=== PATIENT | female | born 1985 ===

== ENCOUNTER 2016-10-04 22:09 | Emergency (ER) | payer OTHER ==
--- NOTE | 2016-10-05 00:32 | ED ORDER SUMMARY ---
..... Patient: JEREMY YOO OrderSheet [facility] VisitID: [id number] [address] [place] [address] 31y, F Registration Date/Time: 10/04/2016 ORDER SHEET Weight: 90.7 kg (stated) Allergies: No Known Drug Allergy GENERAL ORDERS: Cervical Spine 2 or 3V Urgent (23:57 10/04/2016 MARYANNnhzoila MCGREGOR) ([facility] 23:58 Tanesha) (0:07 SBalde R.N.) MEDICATION ORDERS: Dilaudid IM 2 mg (HIGH ALERT MEDICATION, NOW) (23:56 [facility]2016 [facility] (0:18 SBalde R.N.) Phenergan IM 25 mg (HIGH ALERT MEDICATION, NOW) (23:57 10/04/2016 [facility] (0:18 SBalde R.N.) IV FLUIDS: ORDER SHEET NOTES: [Electronically signed by Fiona Toure R.N. (00:43 10/05/2016)] [Electronically signed by Philipp Goodwin DO (03:33 10/05/2016)] [Electronically locked/signed by Fiona Toure R.N. (00:43 10/05/2016)]
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
--- NOTE | 2016-10-05 00:32 | ED ORDER SUMMARY ---
..... Patient: JEREMY YOO OrderSheet [facility] VisitID: [id number] [address] [place] [address] 31y, F Registration Date/Time: 10/04/2016 ORDER SHEET Weight: 90.7 kg (stated) Allergies: No Known Drug Allergy GENERAL ORDERS: Cervical Spine 2 or 3V Urgent (23:57 10/04/2016 MARYANNmszoila MCGREGOR) ([facility] 23:58 Tanesha) (0:07 SBalde R.N.) MEDICATION ORDERS: Dilaudid IM 2 mg (HIGH ALERT MEDICATION, NOW) (23:56 10/04/2016 [facility] (0:18 SBalde R.N.) Phenergan IM 25 mg (HIGH ALERT MEDICATION, NOW) (23:57 10/04/2016 [facility] (0:18 SBalde R.N.) IV FLUIDS: ORDER SHEET NOTES: [Electronically signed by Fiona Toure R.N. (00:43 10/05/2016)] [Electronically signed by Philipp Goodwin DO (03:33 10/05/2016)] [Electronically locked/signed by Fiona Toure R.N. (00:43 10/05/2016)]
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
--- NOTE | 2016-10-05 03:33 | ED MED RECONCILIATION SUMMARY ---
Patient: JEREMY YOO Medication Reconciliation Report [facility] VisitID: [id number] [address] [place] [address] 31y, F Registration Date/Time: 10/04/2016 Weight: 90.7 kg Height/Length: 66 in. BMI: 32.3 ALLERGIES: No Known Drug Allergy The patient's Home Medications are listed below: THE FOLLOWING MEDICATIONS NEED TO BE RECONCILED: Sertraline HCl Oral 100 mg, daily Suboxone Sublingual The source(s) of the original Home Medication information: patient The following Medications were given to the patient in the Emergency Department: Dilaudid [IM] IM 2 mg, administered: 10/05/2016 12:18:00 AM Phenergan [IM] IM 25 mg, administered: 10/05/2016 12:18:00 AM The following Medications were prescribed to the patient: Hydrocodone/APAP 5mg/325mg: take 1 to 2 orally every 6 hours as needed for pain. Dispense fifteen (15). No refills. -- Philipp Goodwin DO Flexeril 10 mg: Take 1 orally every 8 hours as needed for muscle spasm. Dispense twenty (20). No refills. Substitution is permissible. -- Philipp Goodwin DO
--- NOTE | 2016-10-05 03:33 | ED MAR SUMMARY ---
..... Medication Administration Record [facility] [address] [place] [address] Patient: JEREMY YOO Visit ID: [id number] 31y, F Weight: 90.7 kg Height/Length: 66 in BMI: 32.3 ALLERGIES: No Known Drug Allergy Given 00:18 10/05/2016 Kae Rogers REmaniNEmani Medication Administered: DILAUDID [IM] (HYDROMORPHONE HCL PF), Dose: 2 mg IM. Medication Ordered: Dilaudid IM 2 mg (HIGH ALERT MEDICATION, NOW). Given 00:18 10/05/2016 Kae Rogers, REmaniNEmani Medication Administered: PHENERGAN [IM] (PROMETHAZINE HCL), Dose: 25 mg IM. Medication Ordered: Phenergan IM 25 mg (HIGH ALERT MEDICATION, NOW).
--- NOTE | 2016-10-05 03:33 | ED MED RECONCILIATION SUMMARY ---
Patient: JEREMY YOO Medication Reconciliation Report [facility] VisitID: [id number] [address] [place] [address] 31y, F Registration Date/Time: 10/04/2016 Weight: 90.7 kg Height/Length: 66 in. BMI: 32.3 ALLERGIES: No Known Drug Allergy The patient's Home Medications are listed below: THE FOLLOWING MEDICATIONS NEED TO BE RECONCILED: Sertraline HCl Oral 100 mg, daily Suboxone Sublingual The source(s) of the original Home Medication information: patient The following Medications were given to the patient in the Emergency Department: Dilaudid [IM] IM 2 mg, administered: 10/05/2016 12:18:00 AM Phenergan [IM] IM 25 mg, administered: 10/05/2016 12:18:00 AM The following Medications were prescribed to the patient: Hydrocodone/APAP 5mg/325mg: take 1 to 2 orally every 6 hours as needed for pain. Dispense fifteen (15). No refills. -- Philipp Goodwin DO Flexeril 10 mg: Take 1 orally every 8 hours as needed for muscle spasm. Dispense twenty (20). No refills. Substitution is permissible. -- Philipp Goodwin DO
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
--- NOTE | 2016-10-05 03:33 | ED MAR SUMMARY ---
..... Medication Administration Record [facility] [address] [place] [address] Patient: JEREMY YOO Visit ID: [id number] 31y, F Weight: 90.7 kg Height/Length: 66 in BMI: 32.3 ALLERGIES: No Known Drug Allergy Given 00:18 10/05/2016 Kae Rogers REmaniNEmani Medication Administered: DILAUDID [IM] (HYDROMORPHONE HCL PF), Dose: 2 mg IM. Medication Ordered: Dilaudid IM 2 mg (HIGH ALERT MEDICATION, NOW). Given 00:18 10/05/2016 Kae Rogers, REmaniNEmani Medication Administered: PHENERGAN [IM] (PROMETHAZINE HCL), Dose: 25 mg IM. Medication Ordered: Phenergan IM 25 mg (HIGH ALERT MEDICATION, NOW).
== END 2016-10-05 00:41 | disposition home or self-care (01) ==
LOC: ED SRH 22:09
DX: S16.1XXA Strain of muscle, fascia and tendon at neck level, initial encounter (principal); S29.012A Strain of muscle and tendon of back wall of thorax, initial encounter; V43.52XA Car driver injured in collision with other type car in traffic accident, initial encounter; Y93.89 Activity, other specified; Y92.410 Unspecified street and highway as the place of occurrence of the external cause; Y99.9 Unspecified external cause status; G43.009 Migraine without aura, not intractable, without status migrainosus; Z79.899 Other long term (current) drug therapy

== ENCOUNTER 2016-11-11 21:01 | Emergency (ER) | payer OTHER ==
--- NOTE | 2016-11-11 23:36 | ED ORDER SUMMARY ---
..... Patient: JEREMY YOO OrderSheet [facility] VisitID: [id number] [place] [address] 31y, F Registration Date/Time: 11/11/2016 ORDER SHEET Weight: 95.2 kg (stated) Allergies: No Known Drug Allergy GENERAL ORDERS: MEDICATION ORDERS: Toradol IM 60 mg (NOW) (22:48 11/11/2016 Mikey EUBANKS) (22:57 EIkatiana R.N.) Ativan IM 1 mg (NOW) (22:48 11/11/2016 Mikey EUBANKS) (22:58 EIkatiana R.N.) IV FLUIDS: ORDER SHEET NOTES: [Electronically signed by Sasha Lara R.N. (23:48 11/11/2016)] [Electronically signed by Vamshi Todd MD (09:59 11/13/2016)] [Electronically locked/signed by Sasha Lara R.N. (23:48 11/11/2016)]
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
--- NOTE | 2016-11-11 23:36 | ED CLINICAL REPORT ---
Clinical Report - Physicians/Mid Levels [facility] [address] [place] [address] 11/11/2016 21:02 Patient: JEREMY YOO Time Seen: 22:32 Nov 11 2016. Arrived- By private vehicle. Historian- patient. CPT: ER phys charges level 4 (#[id number]). HISTORY OF PRESENT ILLNESS Chief Complaint: HEADACHE. Is still present. This started last night. Onset during light activity. It is described as similar to previous headaches. Located in the right temporal, left temporal and occipital region. At its maximum, severity described as moderate. When seen in the E.D., severity described as moderate. Modifying factors: worsened by moving head and general movement; relieved by rest. The patient has had photophobia. No associated nausea or vomiting. Similar symptoms previously: Recent medical care: Not recently seen/assessed. REVIEW OF SYSTEMS No fever, muscle aches, sinus pressure, ear pain or sore throat. No head injury, chest pain, difficulty breathing, cough or abdominal pain. No diarrhea, pain with urination, skin rash or enlarged lymph nodes. All systems otherwise negative, except as recorded above. PAST HISTORY History of chronic headaches. . Medications: tordol IM given at [facility] today- no effect . zofran given at [facility] today--didn't help . Sertraline HCl Oral 100 mg, daily. Allergies: No Known Drug Allergy. SOCIAL HISTORY Never smoker. No alcohol use or drug use. ADDITIONAL NOTES The nursing notes have been reviewed. PHYSICAL EXAM Vital Signs: 11/11/2016 21:47 BP: 143/87. HR: 75. RR: 18. O2 saturation: 99%. Temp: 98.5 F. Appearance: Alert. Patient in mild distress. Eyes: Pupils equal, round and reactive to light. Eyes normal inspection. ENT: Ears normal. Nose normal. Pharynx normal. Neck: Neck supple. ( Soft tissue tenderness over the lower cervical soft tissue and the bilateral temporalis muscles.). CVS: Normal heart rate and rhythm. Heart sounds normal. Pulses normal. Respiratory: No respiratory distress. Breath sounds normal. Abdomen: Soft and nontender. Back: Normal inspection. Skin: Skin warm. Normal skin color. No rash. Neuro: Oriented X 3. Alert. Mood/affect normal. Speech normal. Cranial nerves normal (as tested). No cerebellar findings. No motor deficit. No sensory deficit. Reflexes normal. PROGRESS AND PROCEDURES Course of Care: 22:46 11/11/16. Patient has headache typical for tension headache with temporal occipital pain. Pain is reproducible on exam. Patient gets occasional headaches that she calls migraines but nobody has done a CAT scan of her head or neurologic workup. Her headaches are very occasionally and the last headache she was seen here for was 5 years ago. the patient was just started on Suboxone yesterday for drug addiction purposes. Discussed the fact that narcotics at this point would not work with Suboxone on board. Toradol 60 mg IM Arivan 1 mg IM 23:36 11/11/16. Pt not found in room. Patient/family counseled. Disposition: Discharged (Eloped). CLINICAL IMPRESSION Episodic tension-type headache resistant to treatment. Eloped. (Electronically signed by Vamshi Todd MD 11/13/2016 9:59)
--- NOTE | 2016-11-11 23:36 | ED ORDER SUMMARY ---
..... Patient: JEREMY YOO OrderSheet [facility] VisitID: [id number] [place] [address] 31y, F Registration Date/Time: 11/11/2016 ORDER SHEET Weight: 95.2 kg (stated) Allergies: No Known Drug Allergy GENERAL ORDERS: MEDICATION ORDERS: Toradol IM 60 mg (NOW) (22:48 11/11/2016 Mikey EUBANKS) (22:57 EIkatiana R.N.) Ativan IM 1 mg (NOW) (22:48 11/11/2016 Mikey EUBANKS) (22:58 EIkatiana R.N.) IV FLUIDS: ORDER SHEET NOTES: [Electronically signed by Sasha Lara R.N. (23:48 11/11/2016)] [Electronically signed by Vamshi Todd MD (09:59 11/13/2016)] [Electronically locked/signed by Sasha Lara R.N. (23:48 11/11/2016)]
--- NOTE | 2016-11-11 23:36 | ED CLINICAL REPORT ---
Clinical Report - Physicians/Mid Levels [facility] [address] [place] [address] 11/11/2016 21:02 Patient: JEREMY YOO Time Seen: 22:32 Nov 11 2016. Arrived- By private vehicle. Historian- patient. CPT: ER phys charges level 4 (#[id number]). HISTORY OF PRESENT ILLNESS Chief Complaint: HEADACHE. Is still present. This started last night. Onset during light activity. It is described as similar to previous headaches. Located in the right temporal, left temporal and occipital region. At its maximum, severity described as moderate. When seen in the E.D., severity described as moderate. Modifying factors: worsened by moving head and general movement; relieved by rest. The patient has had photophobia. No associated nausea or vomiting. Similar symptoms previously: Recent medical care: Not recently seen/assessed. REVIEW OF SYSTEMS No fever, muscle aches, sinus pressure, ear pain or sore throat. No head injury, chest pain, difficulty breathing, cough or abdominal pain. No diarrhea, pain with urination, skin rash or enlarged lymph nodes. All systems otherwise negative, except as recorded above. PAST HISTORY History of chronic headaches. . Medications: tordol IM given at [facility] today- no effect . zofran given at [facility] today--didn't help . Sertraline HCl Oral 100 mg, daily. Allergies: No Known Drug Allergy. SOCIAL HISTORY Never smoker. No alcohol use or drug use. ADDITIONAL NOTES The nursing notes have been reviewed. PHYSICAL EXAM Vital Signs: 11/11/2016 21:47 BP: 143/87. HR: 75. RR: 18. O2 saturation: 99%. Temp: 98.5 F. Appearance: Alert. Patient in mild distress. Eyes: Pupils equal, round and reactive to light. Eyes normal inspection. ENT: Ears normal. Nose normal. Pharynx normal. Neck: Neck supple. ( Soft tissue tenderness over the lower cervical soft tissue and the bilateral temporalis muscles.). CVS: Normal heart rate and rhythm. Heart sounds normal. Pulses normal. Respiratory: No respiratory distress. Breath sounds normal. Abdomen: Soft and nontender. Back: Normal inspection. Skin: Skin warm. Normal skin color. No rash. Neuro: Oriented X 3. Alert. Mood/affect normal. Speech normal. Cranial nerves normal (as tested). No cerebellar findings. No motor deficit. No sensory deficit. Reflexes normal. PROGRESS AND PROCEDURES Course of Care: 22:46 11/11/16. Patient has headache typical for tension headache with temporal occipital pain. Pain is reproducible on exam. Patient gets occasional headaches that she calls migraines but nobody has done a CAT scan of her head or neurologic workup. Her headaches are very occasionally and the last headache she was seen here for was 5 years ago. the patient was just started on Suboxone yesterday for drug addiction purposes. Discussed the fact that narcotics at this point would not work with Suboxone on board. Toradol 60 mg IM Arivan 1 mg IM 23:36 11/11/16. Pt not found in room. Patient/family counseled. Disposition: Discharged (Eloped). CLINICAL IMPRESSION Episodic tension-type headache resistant to treatment. Eloped. (Electronically signed by Vamshi Todd MD 11/13/2016 9:59)
--- NOTE | 2016-11-13 10:00 | ED MAR SUMMARY ---
..... Medication Administration Record [facility] [address] [place] [address] Patient: JEREMY YOO Visit ID: [id number] 31y, F Weight: 95.2 kg Height/Length: 66 in BMI: 33.9 ALLERGIES: No Known Drug Allergy Given 22:57 11/11/2016 Sasha Lara R.N. Medication Administered: TORADOL [IM] (KETOROLAC TROMETHAMINE), Dose: 60 mg IM. Medication Ordered: Toradol IM 60 mg (NOW). Given 22:57 11/11/2016 Sasha Lara REmaniNEmani Medication Administered: ATIVAN [IM] (LORAZEPAM), Dose: 1 mg IM. Medication Ordered: Ativan IM 1 mg (NOW).
--- NOTE | 2016-11-13 10:00 | ED MED RECONCILIATION SUMMARY ---
Patient: JEREMY YOO Medication Reconciliation Report [facility] VisitID: [id number] [place] [address] 31y, F Registration Date/Time: 11/11/2016 Weight: 95.2 kg Height/Length: 66 in. BMI: 33.9 ALLERGIES: No Known Drug Allergy The patient's Home Medications are listed below: THE FOLLOWING MEDICATIONS NEED TO BE RECONCILED: Sertraline HCl Oral 100 mg, daily tordol IM given at [facility]- no effect zofran given at [facility] today--didn't help The source(s) of the original Home Medication information: Not obtained. The following Medications were given to the patient in the Emergency Department: Toradol [IM] IM 60 mg, administered: 11/11/2016 10:57:00 PM Ativan [IM] IM 1 mg, administered: 11/11/2016 10:57:00 PM The following Medications were prescribed to the patient: None.
--- NOTE | 2016-11-13 10:00 | ED MAR SUMMARY ---
..... Medication Administration Record [facility] [address] [place] [address] Patient: JEREMY YOO Visit ID: [id number] 31y, F Weight: 95.2 kg Height/Length: 66 in BMI: 33.9 ALLERGIES: No Known Drug Allergy Given 22:57 11/11/2016 Sasha Lara R.N. Medication Administered: TORADOL [IM] (KETOROLAC TROMETHAMINE), Dose: 60 mg IM. Medication Ordered: Toradol IM 60 mg (NOW). Given 22:57 11/11/2016 Sasha Lara REmaniNEmani Medication Administered: ATIVAN [IM] (LORAZEPAM), Dose: 1 mg IM. Medication Ordered: Ativan IM 1 mg (NOW).
--- NOTE | 2016-11-13 10:00 | ED DISCHARGE INSTRUCTIONS ---
Patient: JEREMY YOO General Instructions [facility] VisitID: [id number] [place] [address] 31y, F Registration Date/Time: 11/11/2016 Episodic tension-type headache resistant to treatment. Zora. ADDITIONAL INFORMATION Tension Headache Muscle Tension Headache (also called "stress headache") is a very common cause of head pain. Under stress, some people tense the muscles of their shoulder, neck and scalp without knowing it. If this lasts long enough, a headache can occur. These headaches can be very painful and last for hours or even days. Home Care: If you were given pain medicine for this headache, do not drive yourself home. Arrange for a ride, instead. When you get home, try to sleep. You should feel much better when you wake up. Heat to the back of your neck may relieve neck spasm. Drink only clear liquids or eat a very light diet to avoid nausea/vomiting until symptoms improve. Preventing Future Headaches Identify the sources of stress in your life. These may not be obvious! Learn new ways to handle your stress, such as regular exercise, biofeedback, self-hypnosis and meditation. For more information about this, consult your doctor or go to a local bookstore and review the many books and tapes on this subject. At the first sign of a tension headache, take time out if possible. Remove yourself from the stressful situation, find a quiet comfortable place to sit or lie down and let yourself relax. Heat and deep massage of the tight areas in the neck and shoulders may help reduce muscle spasm. Medicine, such as ibuprofen (Advil or Motrin) or a prescribed muscle relaxant may be helpful at this point. Follow Up with your doctor if the headache is not better within the next 24 hours. If you have frequent headaches you should discuss a treatment plan with your primary care doctor. Ask if you can have medicine to take at home the next time you get a bad headache. This may avoid the need for a visit to the emergency department in the future. Poorly controlled chronic headaches may require a referral to a neurologist (headache specialist). Get Prompt Medical Attention if any of the following occur: Worsening of your head pain or no improvement within 24 hours Repeated vomiting (unable to keep liquids down) Fever of 100.4F (38C) or higher, or as directed by your healthcare provider Stiff neck Extreme drowsiness, confusion or fainting Dizziness, vertigo (dizziness with spinning sensation) Weakness of an arm or leg or one side of the face Difficulty with speech or vision You have been given the following additional information: Headache, Tension (Electronically signed by Vamshi Todd MD 11/13/2016 9:59)
--- NOTE | 2016-11-13 10:00 | ED MED RECONCILIATION SUMMARY ---
Patient: JEREMY YOO Medication Reconciliation Report [facility] VisitID: [id number] [address] [place] [address] 31y, F Registration Date/Time: 11/11/2016 Weight: 95.2 kg Height/Length: 66 in. BMI: 33.9 ALLERGIES: No Known Drug Allergy The patient's Home Medications are listed below: THE FOLLOWING MEDICATIONS NEED TO BE RECONCILED: Sertraline HCl Oral 100 mg, daily tordol IM given at [facility]- no effect zofran given at [facility] today--didn't help The source(s) of the original Home Medication information: Not obtained. The following Medications were given to the patient in the Emergency Department: Toradol [IM] IM 60 mg, administered: 11/11/2016 10:57:00 PM Ativan [IM] IM 1 mg, administered: 11/11/2016 10:57:00 PM The following Medications were prescribed to the patient: None.
== END 2016-11-11 23:46 | disposition home or self-care (01) ==
LOC: ED SRH 21:01
DX: G44.211 Episodic tension-type headache, intractable (principal)